=== PATIENT | female | born 1980 | race Caucasian/White ===

== ENCOUNTER 2017-11-22 11:48 | Inpatient (IN) | payer OTHER ==
[~2017-11-22] VITALS: Ht 172.7 cm; Wt 88.9 kg
[~2017-11-22 11:48] MED LIST: ADDERALL 20 MG20 MG PO; BACTRIM DS TAB1 EACH PO; CELEXA10 MG PO; CLONAZEPAM 0.50.5 M1 PO; FLEXERIL; FLEXERIL PO; HYDROCODON-ACE1 EAC7 PO; HYDROCODONE-AP1 EAC6 PO; IBUPROFEN 800800 MG PO; MEDROLDOSEPACK PO; NORCO 5-325 TA1 EACH PO; TOPAMAX 100 MG100 MG PO; TRAMADOL 50 MG50 MG PO
[2017-11-22 12:01] VITALS: BP 169/119
[2017-11-22] MEDS ORDERED: FLONASE 0.05%50 MCG NASAL (12:06)
[2017-11-22 12:38] LABS: ABSOLUTE BASOPHILS 0.1 thou/uL (0.0-0.2); ABSOLUTE EOSINOPHILS 0.2 thou/uL (0.0-0.7); ABSOLUTE LYMPHOCYTES 2.7 thou/uL (0.8-5.3); ABSOLUTE MONOCYTES 0.7 thou/uL (0.0-1.2); ABSOLUTE NEUTROPHILS 5.2 thou/uL (1.6-8.1); BASOPHILS 0.9 %; HEMATOCRIT 43.5 % (37.0-47.0); LYMPHOCYTES 30.5 %; MCH 32.2 pg (26.0-34.0); MCHC 34.5 g/dL (28.0-37.0); MCV 93.2 fL (80.0-100.0); MPV 7.5 fl. (7.2-11.1); NUCLEATED RBCS 0 /100WBC; PLATELET COUNT* 313 thou/uL (150-400); POLYS 58.6 %; RBC 4.67 mil/uL (4.20-5.00); RDW-CV 12.5 % (10.5-14.5); WBC 8.9 thou/uL (4.0-11.0)
[2017-11-22 12:46] LABS: PROTIME 10.2 Seconds (9.20-11.50)
[2017-11-22 12:50] LABS: ANION GAP 9 mmol/L (7-16); BUN 14 mg/dL (7-18); CALCIUM 9.1 mg/dL (8.5-10.1); CHLORIDE 103 mmol/L (98-107); CO2 24 mmol/L (21-32); CREATININE 1.3 mg/dL (0.6-1.3); GLUCOSE 131 mg/dL (70-99); POTASSIUM 4.2 mmol/L (3.5-5.1); SODIUM 136 mmol/L (136-145)
[2017-11-22 12:57] LABS: ALBUMIN 3.9 g/dL (3.4-5.0); ALKALINE PHOSPHATASE 108 U/L (46-116); SGOT 63 U/L (15-37); SGPT 157 U/L (30-65); TOTAL BILIRUBIN 0.3 mg/dL (<0.1-1.0); TOTAL PROTEIN 7.7 g/dL (6.4-8.2); TROPONIN-I LEVEL <0.06 ng/mL (<0.06)
[2017-11-22 14:28] VITALS: BP 191/112
[2017-11-22 14:35] VITALS: BP 160/119
--- NOTE | 2017-11-22 15:51 | NUR ---
PATIENT REQUESTED [facility] RN TO UPDATE HER ALLERG LIST AND TAKE ADVERSE REACTION OF MORPHINE OFF LIST. STATES IT WAS YEARS AGO AND NOT A CONCERN.
--- NOTE | 2017-11-22 18:26 | NUR ---
RECEIVED PT FROM ER 1445. SHE IS ALERT/ORIENTED X4. SHE DENIES SOA. O2 SAT 98% ON 2L NC. TITRATED TO ROOM AIR. UP INDEPENDENTLY IN ROOM. GAIT IS STEADY. C/O 10/10 PAIN TO HER LEFT SIDE WITH INTERMITTENT SHARP PAINS IN HER LEFT LEG. LEFT FOOT CAN BE COOLER IN TEMPERATURE THAN HER RIGHT FOOT AT TIMES WHEN SHE IS HAVING THE SHARP PAINS IN HER LEG. 2/2 PULSES. ADMISSION ASSESSMENT AND HISTORY COMPLETE. PATIENT STATES SHE HAS INTERMITTENT EPISODES OF NAUSEA. PRN ZOFRAN GIVEN WITH GOOD RELIEF. PATIENT WAS ABLE TO EAT HER DINNER WITHOUT NAUSEA OR VOMITING. SPINE XRAYS COMPLETED. HOURLY ROUNDING CHARTED. CALL LIGHT WITHIN REACH. PAIN PARTIALLY RELIEVED WITH PRN DILAUDID AND HYDROCODONE. ICE PACKS GIVEN AND PATIENT IS USING THEM TO HER LEFT HIP. WILL CONTINUE TO MONITOR.
[2017-11-22 20:55] VITALS: BP 138/90
[2017-11-23 04:59] VITALS: BP 139/91
--- NOTE | 2017-11-23 06:32 | NUR ---
PATIENT ALERT AND ORIENTED. VITALS STABLE. RA. ALTERNATING PO AND IV PAIN MEDICATION, PARTIALLY EFFECTIVE. COMPLAINTS OF MILD BURNING AND INTERMITTENT COOLING OF LEFT LEG. IN HER LEGS. WILL HAVE ARTERIAL US OF LOWER EXTREMITIES TODAY. UP INDEPENDENTLY IN ROOM. IV PATENT, SALINE LOCKED. DR. SINGH CALLED TO CLARIFY MRI ORDERS. HE STATES THAT HE WILL ADDRESS ALL ORDERS WHEN HE SEES THE PATIENT TODAY. HOURLY ROUNDS. INSTRUCTED TO CALL FOR ASSISTANCE. NURSING WILL CONTINUE TO MONITOR.
[2017-11-23 07:30] VITALS: BP 128/69
--- NOTE | 2017-11-23 12:14 | EKG ---
[place] [address] ELECTROCARDIOGRAM REPORT Name: RAFI VAZQUEZ Room: [address] ADM IN [facility].#: [id number] Admission: 11/22/17 Attend Phys: Arie Gomez MD Discharge: Date of : 84 Report #: [id number] THIS REPORT FOR: //name// [facility] ED Test Date: 2017-11-22 Test Time: 12:21:48 Pat Name: RAFI VAZQUEZ Department: Room: [facility] Gender: F Manager Animal: HALINA : 1980 Requested By: Randal Caruso Order Number: [id number] MD: Flex Perdomo Measurements Intervals [place] Rate: 103 P: 64 [place]: 129 QRS: 2 QRSD: 95 T: 38 QT: 342 QTc: 448 Interpretive Statements Sinus tachycardia Left atrial enlargement RSR' in V1 or V2, right VCD or RVH Baseline wander in lead(s) V2 No previous ECG available for comparison Electronically Signed On 11-23-2017 12:14:13 CDT by Flex Perdomo [email or web address] <ELECTRONICALLY SIGNED> By: Flex Perdomo MD, FACC 11/23/17 1214 1221 1221 Flex Perdomo MD, [facility] /EPI
[2017-11-23 15:49] VITALS: BP 125/68
--- NOTE | 2017-11-23 17:59 | NUR ---
ALERT AND ORIENTED X4. UP AD DORA IN ROOM. IV IS PATENT AND SALINE LOCKED. PAIN BEING MANAGED WITH PO AND IV PAIN MEDICATION. DENIES NAUSEA. TOLERATING DIET. VSS ON ROOM AIR. HOURLY ROUNDS HAVE BEEN MAINTAINED THROUGHOUT SHIFT. CALL LIGHT IS WITHIN REACH. NURSING WILL CONTINUE TO MONITOR.
[2017-11-23 20:20] VITALS: BP 115/65
[2017-11-24] VITALS (8 sets, daily range): BP systolic 110; BP diastolic 72
--- NOTE | 2017-11-24 05:56 | NUR ---
PATIENT HAS SLEPT WELL THROUGHOUT THE NIGHT WITHOUT ANY ISSUES. PAIN WELL CONTROLLED WITH ORAL AND IV PAIN MEDICATIONS AND CHARTED. PATIENT IS UP AD-DORA AND STEADY. IV IN RIGHT UPPER ARM-SL. PATIENT INSTRUCTED TO USE CALL LIGHT WHEN NEEDING ASSISTANCE. HOURLY ROUNDS MADE. WILL CONTINUE WITH PLAN OF CARE AND NURSING TO MONITOR.
[2017-11-24] MEDS ORDERED: MEDROLDOSEPACK PO (08:48)
[2017-11-24] MEDS ORDERED: IBUPROFEN 800800 M1 PO (09:56)
--- NOTE | 2017-11-24 11:56 | NUR ---
P.T. ORDERS RECEIVED 11/22/17. P.T. EVAL DEFERRED 11/23/17 UNTIL MRI COMPLETED. CHART REVIEWED AGAIN THIS MORNING. MRI NEGATIVE FOR ACUTE PROCESS. PT TO DISCHARGE HOME WITH REFERRAL FOR OUTPT P.T. PER NSG NOTES PT HAS BEEN UP AD DORA IN ROOM. SPOKE WITH PT WHO CONCURS WITH MOBILITY STATUS. PT ALSO REPORTS BACK AND LEG SPASMS AT TIME OF P.T. CONTACT. PT NOT WANTING ACUTE P.T. BUT TO DEFER TO OUTPT P.T. ACUTE P.T. INTERVENTION NOT INDICATED WITH INDEP FUNCTIONAL MOBILITY AND PENDING DISCHARGE WITH OUTPT P.T. REFERRAL.
[2017-11-24] MEDS ORDERED: HYDROCODONE-AP1 EAC6 PO (16:47)
--- NOTE | 2017-11-24 17:16 | NUR ---
PATIENT LEFT UNIT AT 1805. ALERT AND ORIENTED X4. UP AD DORA DURING AMBULATION. IV DC'D. PAIN BEING MANAGED WITH PO PAIN MEDICATION. DENIES NAUEA. ALL PERSONAL ITEMS LEFT WITH PATIENT. DISCHARGE INSTRUCTIONS, PRESCRIPTIONS, AND NEW MEDICATION INFORMATION SENT WITH PATIENT. VSS ON ROOM AIR. HOURLY ROUNDS HAVE BEEN MAINTAINED THROUGHOUT SHIFT. LEFT WITH PARENT VIA CAR.
--- NOTE | 2017-12-30 20:02 | CON ---
[address] [address] CONSULTATION Name: RAFI VAZQUEZ Room: [address] IN M.R.#: [id number] Admission: 11/22/17 Attend Phys: Arie Gomez MD Discharge: 11/24/17 Date of : 84 Report #: [id number] THIS REPORT FOR: //name// CC: Arie Ryan HISTORY OF PRESENT ILLNESS: This is a 37-year-old female patient who was seen by me during her November admission on the date, which I believe was 11/23/2017. I was informed by medical record that because of the technical reasons, the patient's dictation is lost and there is no sound on that dictation. They asked me to redictate and I am redictating from my memory. I do not remember the patient much. The way I remember is that this patient was admitted with back pain as well as leg numbness. If I remember correctly, this patient also had some injury, which was not becoming any better. She has described her symptoms as severe, requiring multiple workups. REVIEW OF SYSTEMS: Positive for back pain, which was intractable. She has a history of kidney stone as well as anxiety and depression if I remember correctly. I had carried out 14-point review of system, and this is what I remember. PAST MEDICAL HISTORY: Positive for anxiety and depression. FAMILY HISTORY: If I remember was unremarkable. SOCIAL HISTORY: If I remember correctly, she was a smoker and she did alcohol occasionally. PHYSICAL EXAMINATION: Her examination had indicated she was alert and responsive. If I remember correctly, her speech, concentration, fund of knowledge and memory were at her baseline. Cranial nerve examination 2-12 was unremarkable. Neuromuscular examination was difficult because she was complaining of lot of back pain, but if I remember correctly, her reflexes, etc. were unremarkable and there was no papilledema. Cardiac and respiratory examinations were also unremarkable. Her blood pressure had fluctuated and it has gone high like 160/104. Pulse was 111, temperature was normal. Otherwise, there was not much cardiac and respiratory examination. IMPRESSION: This patient was mostly complaining of back pain, but she was also having multiple other symptoms like paraesthesia; so, my plan was to do an MRI to rule out an outside chance of something like demyelinating disorder. RECOMMENDATIONS: We had planned to do an MRI after talking to the patient and talking to her about the indication, potential complication[place] [address] CONSULTATION Name: RAFI VAZQUEZ Frank Room: [address] [facility]#: [id number] Admission: 11/22/17 Attend Phys: Arie Gomez MD Discharge: 11/24/17 Date of : 84 Report #: [id number] She wanted to proceed with that and that was scheduled and plan was to follow up on that. <ELECTRONICALLY SIGNED> By: Hosea Louis MD 12/30/172001 1322 1421Psandra Louis MD /nt
== END 2017-11-24 17:05 | disposition home or self-care (01) | DRG 552 ==
LOC: M.ERS 11:48 → M.TBA-ER 13:01 → M.ORTHSURG 13:01 → M.TBA-ER 13:51 → M.ORTHSURG 15:14
PROVIDERS: Emergency Medicine; ADMIT Internal Medicine
DX: M47.896 Other spondylosis, lumbar region (principal); G43.909 Migraine, unspecified, not intractable, without status migrainosus; F98.8 Other specified behavioral and emotional disorders with onset usually occurring in childhood and adolescence; F32.9 Major depressive disorder, single episode, unspecified; M54.16 Radiculopathy, lumbar region; F41.9 Anxiety disorder, unspecified; F17.210 Nicotine dependence, cigarettes, uncomplicated; Z87.442 Personal history of urinary calculi; Z79.51 Long term (current) use of inhaled steroids; Z79.899 Other long term (current) drug therapy; Z88.5 Allergy status to narcotic agent; Z88.8 Allergy status to other drugs, medicaments and biological substances

== ENCOUNTER 2018-10-11 23:16 | Emergency (ER) | payer OTHER ==
[~2018-10-11] VITALS: Ht 172.7 cm; Wt 90.7 kg
[~2018-10-11 23:16] MED LIST changes: +FLONASE 0.05%50 MCG NASAL; +IBUPROFEN 800800 M1 PO
[2018-10-11] MEDS ORDERED: SEROQUEL 50 MG50 MG (23:28)
[2018-10-12] MEDS ORDERED: COMPAZINE10 MG PO (00:39)
[2018-10-12 00:50] VITALS: BP 166/98
== END 2018-10-12 00:52 | disposition home or self-care (01) ==
LOC: M.ERS 23:16
DX: G43.909 Migraine, unspecified, not intractable, without status migrainosus (principal); H57.11 Ocular pain, right eye; F41.9 Anxiety disorder, unspecified; F32.9 Major depressive disorder, single episode, unspecified; F17.210 Nicotine dependence, cigarettes, uncomplicated; Z88.1 Allergy status to other antibiotic agents; Z88.8 Allergy status to other drugs, medicaments and biological substances

== ENCOUNTER 2019-04-04 14:18 | Emergency (ER) | payer OTHER ==
[~2019-04-04] VITALS: Ht 162.6 cm; Wt 83.0 kg
[~2019-04-04 14:18] MED LIST changes: +COMPAZINE10 MG PO; +SEROQUEL 50 MG50 MG
[2019-04-04] MEDS ORDERED: CYMBALTA20 MG PO (14:40)
[2019-04-04] MEDS ORDERED: NORCO 5-325 TA1 EAC1 PO (15:20)
[2019-04-04 15:36] VITALS: BP 150/106
== END 2019-04-04 15:37 | disposition home or self-care (01) ==
LOC: M.ERS 14:18
DX: S61.111A Laceration without foreign body of right thumb with damage to nail, initial encounter (principal); T63.891A Toxic effect of contact with other venomous animals, accidental (unintentional), initial encounter; G43.909 Migraine, unspecified, not intractable, without status migrainosus; F98.8 Other specified behavioral and emotional disorders with onset usually occurring in childhood and adolescence; F17.210 Nicotine dependence, cigarettes, uncomplicated; F10.10 Alcohol abuse, uncomplicated; F32.9 Major depressive disorder, single episode, unspecified; M47.20 Other spondylosis with radiculopathy, site unspecified; F41.9 Anxiety disorder, unspecified; Z98.51 Tubal ligation status; Z87.442 Personal history of urinary calculi; Z79.899 Other long term (current) drug therapy; Z88.1 Allergy status to other antibiotic agents; Z88.5 Allergy status to narcotic agent; Z88.8 Allergy status to other drugs, medicaments and biological substances; Y92.89 Other specified places as the place of occurrence of the external cause

== ENCOUNTER → 2019-07-06 | Outpatient (CLI) | payer OTHER ==
[~2019-07-06] MED LIST changes: +CYMBALTA20 MG PO; +NORCO 5-325 TA1 EAC1 PO
== END ==
LOC: M.ULTRA 05-30 07:30
DX: R10.2 Pelvic and perineal pain (principal); R94.5 Abnormal results of liver function studies; R16.0 Hepatomegaly, not elsewhere classified; Z90.721 Acquired absence of ovaries, unilateral

== ENCOUNTER 2019-09-14 10:30 | Emergency (ER) | payer OTHER ==
[~2019-09-14] VITALS: Ht 170.2 cm; Wt 81.7 kg
[2019-09-14] MEDS ORDERED: LYRICA20 MG/1 ML PO (10:41)
[2019-09-14 11:28] LABS: ABSOLUTE BASOPHILS 0.1 thou/uL (0.0-0.2); ABSOLUTE EOSINOPHILS 0.1 thou/uL (0.0-0.7); ABSOLUTE LYMPHOCYTES 2.3 thou/uL (0.8-5.3); ABSOLUTE MONOCYTES 0.5 thou/uL (0.0-1.2); ABSOLUTE NEUTROPHILS 2.6 thou/uL (1.6-8.1); BASOPHILS 1.1 %; EOSINOPHILS 2.2 %; HEMOGLOBIN 15.8 gm/dL (12.0-15.0); LYMPHOCYTES 41.3 %; MCH 33.3 pg (26.0-34.0); MCHC 35.1 g/dL (28.0-37.0); MCV 94.9 fL (80.0-100.0); MONOCYTES 8.3 %; MPV 7.5 fl. (7.2-11.1); NUCLEATED RBCS 0 /100WBC; PLATELET COUNT* 257 thou/uL (150-400); POLYS 47.1 %; RBC 4.74 mil/uL (4.20-5.00); RDW-CV 13.9 % (10.5-14.5); WBC 5.6 thou/uL (4.0-11.0)
[2019-09-14 12:45] LABS: CALCIUM 8.8 mg/dL (8.5-10.1); CREATININE 0.7 mg/dL (0.6-1.3); POTASSIUM 4.2 mmol/L (3.5-5.1)
[2019-09-14 12:50] LABS: ALBUMIN 3.7 g/dL (3.4-5.0); TOTAL BILIRUBIN 0.5 mg/dL (<0.1-1.0); TOTAL PROTEIN 7.8 g/dL (6.4-8.2)
--- NOTE | 2019-09-14 15:02 | EKG ---
[place] [address] ELECTROCARDIOGRAM REPORT Name: RAFI VAZQUEZ Room: [facility]#: [id number] Admission: 09/14/19 Attend Phys: Discharge: Date of : 84 Report #: [id number] THIS REPORT FOR: //name// [facility] ED Test Date: 2019-09-14 Test Time: 11:09:20 Pat Name: RAFI VAZQUEZ Department: Room: Gender: F Plant Safety Engineer: : 1980 Requested By: Ricardo Leon Order Number: [id number] MD: Flex Perdomo Measurements Intervals [place] Rate: 101 P: 45 SD: 143 QRS: -11 QRSD: 94 T: -1 QT: 365 QTc: 474 Interpretive Statements Sinus tachycardia Probable left atrial enlargement Baseline wander in lead(s) II,III,aVF Compared to ECG 11/22/2017 12:21:48 no change Electronically Signed On 09-14-2019 15:01:51 CERTIFIED HYPERBARIC TECHNICIAN by Flex Perdomo [email or web address] <ELECTRONICALLY SIGNED> By: Flex Perdomo MD, [facility] 09/14/19 1501 1109 Flex Perdomo MD, [facility] /EPI
[2019-09-14 15:28] LABS: URINE BILIRUBIN NEGATIVE (Negative); URINE BLOOD NEGATIVE (Negative); URINE CLARITY CLEAR; URINE COLOR YELLOW; URINE GLUCOSE-RANDOM NEGATIVE (Negative); URINE KETONES NEGATIVE (Negative); URINE LEUKOCYTES-REFLEX NEGATIVE (Negative); URINE PROTEIN NEGATIVE (Negative); URINE UROBILINOGEN 0.2 E.U./dl (0.2-1.0)
[2019-09-14 15:44] LABS: URINE NITRITE-REFLEX POSITIVE (Negative)
[2019-09-14 15:47] LABS: BACTERIA-REFLEX 1-9 Few /HPF (None Seen); CASTS None Seen /LPF (None Seen); CRYSTALS None Seen /LPF (None Seen); SQUAMOUS 0-3 Few /LPF (0-3); URINE RBC 0-2 Rare /HPF (0-2); URINE WBC-REFLEX 0-5 Rare /HPF (0-5)
[2019-09-14] MEDS ORDERED: NORCO 5-325 TA1 EAC1 PO (15:47)
[2019-09-14] MEDS ORDERED: ZOFRAN ODT4 MG DISSOLVE (15:47)
[2019-09-14] MEDS ORDERED: PHENERGAN 25 MG25 M1 PO (15:47)
[2019-09-14] MEDS ORDERED: BACTRIM DS TAB1 EAC1 PO (15:47)
[2019-09-14 16:06] VITALS: BP 131/103
== END 2019-09-14 16:07 | disposition home or self-care (01) ==
LOC: M.ERS 10:30
PROVIDERS: Emergency Medicine Emergency Medical Services
DX: N39.0 Urinary tract infection, site not specified (principal); R11.2 Nausea with vomiting, unspecified; R19.7 Diarrhea, unspecified; G43.909 Migraine, unspecified, not intractable, without status migrainosus; N80.9 Endometriosis, unspecified; F17.210 Nicotine dependence, cigarettes, uncomplicated; Z88.6 Allergy status to analgesic agent; Z88.1 Allergy status to other antibiotic agents; Z87.442 Personal history of urinary calculi; Z98.51 Tubal ligation status

== ENCOUNTER 2019-09-19 08:51 | Emergency (ER) | payer OTHER ==
[~2019-09-19] VITALS: Ht 170.2 cm; Wt 81.7 kg
[~2019-09-19 08:51] MED LIST changes: +BACTRIM DS TAB1 EAC1 PO; +LYRICA20 MG/1 ML PO; +PHENERGAN 25 MG25 M1 PO; +ZOFRAN ODT4 MG DISSOLVE
[2019-09-19 09:50] LABS: URINE BLOOD NEGATIVE (Negative); URINE CLARITY SL CLOUDY; URINE COLOR DARK YELLOW; URINE GLUCOSE-RANDOM NEGATIVE (Negative); URINE KETONES TRACE (Negative); URINE LEUKOCYTES-REFLEX NEGATIVE (Negative); URINE NITRITE-REFLEX NEGATIVE (Negative); URINE PROTEIN 1+ (Negative); URINE SPECIFIC GRAVITY >= 1.030 (1.005-1.030)
[2019-09-19 09:55] LABS: ICTOTEST (BILI CONFIRMATORY) Negative (Negative); URINE BILIRUBIN 1+ (Negative)
[2019-09-19 10:55] LABS: ABSOLUTE BASOPHILS 0.1 thou/uL (0.0-0.2); ABSOLUTE EOSINOPHILS 0.4 thou/uL (0.0-0.7); ABSOLUTE LYMPHOCYTES 2.5 thou/uL (0.8-5.3); ABSOLUTE MONOCYTES 0.7 thou/uL (0.0-1.2); ABSOLUTE NEUTROPHILS 4.6 thou/uL (1.6-8.1); CALCIUM 8.7 mg/dL (8.5-10.1); EOSINOPHILS 4.7 %; HEMATOCRIT 42.4 % (37.0-47.0); HEMOGLOBIN 14.8 gm/dL (12.0-15.0); LYMPHOCYTES 30.5 %; MCH 33.8 pg (26.0-34.0); MCHC 34.9 g/dL (28.0-37.0); MCV 96.7 fL (80.0-100.0); MPV 8.8 fl. (7.2-11.1); NUCLEATED RBCS 1 /100WBC; POLYS 55.8 %; RBC 4.38 mil/uL (4.20-5.00); TOTAL BILIRUBIN 0.8 mg/dL (<0.1-1.0); TOTAL PROTEIN 7.6 g/dL (6.4-8.2); WBC 8.2 thou/uL (4.0-11.0)
[2019-09-19 11:10] LABS: POTASSIUM 4.1 mmol/L (3.5-5.1)
[2019-09-19 11:36] LABS: PLATELET COUNT* 223 thou/uL (150-400)
[2019-09-19] MEDS ORDERED: BENTYL 20 MG TA20 M1 PO (14:56)
[2019-09-19] MEDS ORDERED: HYDROCORTISONE30 G9 RECTAL (14:56)
[2019-09-19] MEDS ORDERED: TRAMADOL 50 MG50 MG PO (14:56)
[2019-09-19 15:15] VITALS: BP 98/50
== END 2019-09-19 15:21 | disposition home or self-care (01) ==
LOC: M.ERS 08:51
PROVIDERS: Personal Emergency Response Attendant
DX: R10.12 Left upper quadrant pain (principal); G43.909 Migraine, unspecified, not intractable, without status migrainosus; N80.9 Endometriosis, unspecified; F17.210 Nicotine dependence, cigarettes, uncomplicated; Z88.1 Allergy status to other antibiotic agents; Z88.6 Allergy status to analgesic agent; Z87.442 Personal history of urinary calculi; Z98.51 Tubal ligation status

== ENCOUNTER 2020-02-26 23:57 | Emergency (ER) | payer OTHER ==
[~2020-02-26] VITALS: Ht 170.2 cm; Wt 82.6 kg
[~2020-02-26 23:57] MED LIST changes: +BENTYL 20 MG TA20 M1 PO; +HYDROCORTISONE30 G9 RECTAL
[2020-02-27] MEDS ORDERED: VISTARIL 25 MG25 M1 PO (00:09)
[2020-02-27] MEDS ORDERED: HYDROCODON-ACE1 EAC7 PO (01:36)
[2020-02-27 02:00] VITALS: BP 128/84
== END 2020-02-27 02:00 ==
LOC: M.ERS 23:57
DX: S83.91XA Sprain of unspecified site of right knee, initial encounter (principal); G43.909 Migraine, unspecified, not intractable, without status migrainosus; F32.9 Major depressive disorder, single episode, unspecified; F98.8 Other specified behavioral and emotional disorders with onset usually occurring in childhood and adolescence; F41.9 Anxiety disorder, unspecified; F17.210 Nicotine dependence, cigarettes, uncomplicated; F12.10 Cannabis abuse, uncomplicated; Z98.51 Tubal ligation status; Z87.442 Personal history of urinary calculi; Z88.1 Allergy status to other antibiotic agents; Z88.5 Allergy status to narcotic agent; W14.XXXA Fall from tree, initial encounter; Y93.89 Activity, other specified; Y92.89 Other specified places as the place of occurrence of the external cause; Y99.8 Other external cause status

== ENCOUNTER 2020-05-01 09:13 | Emergency (ER) | payer OTHER ==
[~2020-05-01] VITALS: Ht 170.2 cm; Wt 81.7 kg
[~2020-05-01 09:13] MED LIST changes: +VISTARIL 25 MG25 M1 PO
[2020-05-01 11:03] VITALS: BP 180/73
--- NOTE | 2020-05-01 15:37 | EKG ---
[place] [address] ELECTROCARDIOGRAM REPORT Name: RAFI VAZQUEZ Room: [facility]#: [id number] Admission: 05/01/20 Attend Phys: Discharge: 05/01/20 Date of : 84 Date of Service: 05/01/20917 Report #: [id number] THIS REPORT FOR: //name// [facility] ED Test Date: 2020-05-01 Test Time: 09:18:48 Pat Name: RAFI VAZQUEZ Department: Room: Gender: F Sed Special Education Teacher: yasmin : 1980 Requested By: Sinan Martínez Order Number: [id number] MD: Erick Rg Measurements Intervals [place] Rate: 98 P: 44 [place]: 152 QRS: -20 QRSD: 99 T: 5 QT: 368 QTc: 470 Interpretive Statements Sinus rhythm Borderline left axis deviation Borderline T abnormalities, inferior leads Compared to ECG 09/14/2019 11:09:20 T-wave abnormality now present Sinus tachycardia no longer present Electronically Signed On 05-01-2020 15:37:44 CDT by Erick Rg [email or web address] <ELECTRONICALLY SIGNED> By: Erick Rg MD, [facility] 05/01/20 1537 7 7 Erick Rg MD, [facility] /EPI
== END 2020-05-01 11:04 | disposition home or self-care (01) ==
LOC: M.ERS 09:13
DX: F41.9 Anxiety disorder, unspecified (principal); F32.9 Major depressive disorder, single episode, unspecified; G43.909 Migraine, unspecified, not intractable, without status migrainosus; F17.210 Nicotine dependence, cigarettes, uncomplicated; Z87.442 Personal history of urinary calculi; Z98.51 Tubal ligation status; Z88.1 Allergy status to other antibiotic agents; Z88.6 Allergy status to analgesic agent; Y04.0XXA Assault by unarmed brawl or fight, initial encounter; Y93.89 Activity, other specified; Y92.89 Other specified places as the place of occurrence of the external cause; Y99.8 Other external cause status